=== PATIENT | female | born 1985 | race Caucasian/White ===

== ENCOUNTER 2018-10-22 07:29 | Outpatient (CLI) | payer SELFPAY ==
[2018-10-22 08:31] LABS: HCG Quant, Pregnancy 2 mIU/mL (1-3)
== END 2018-10-22 07:49 ==
PROVIDERS: PCP Obstetrics & Gynecology Reproductive Endocrinology; Visit Provider Obstetrics & Gynecology Reproductive Endocrinology
DX: O09.811 Supervision of pregnancy resulting from assisted reproductive technology, first trimester (principal)
CPT/HCPCS: 36415; 84702

== ENCOUNTER 2018-10-29 07:15 | Outpatient (CLI) | payer SELFPAY ==
[2018-10-29 08:08] LABS: HCG Quant, Pregnancy < 1 mIU/mL (1-3)
== END 2018-10-29 07:35 ==
PROVIDERS: PCP Obstetrics & Gynecology Reproductive Endocrinology; Visit Provider Obstetrics & Gynecology Reproductive Endocrinology
DX: O09.811 Supervision of pregnancy resulting from assisted reproductive technology, first trimester (principal)
CPT/HCPCS: 36415; 84702

== ENCOUNTER 2019-01-19 07:42 | Outpatient (CLI) | payer SELFPAY ==
[2019-01-19 08:32] LABS: HCG Quant, Pregnancy 212 mIU/mL (1-3)
[2019-01-19 16:23] LABS: Progesterone 33.5 ng/ml
== END 2019-01-19 08:02 ==
PROVIDERS: PCP Obstetrics & Gynecology Reproductive Endocrinology; Visit Provider Obstetrics & Gynecology Reproductive Endocrinology
DX: Z52.819 Egg (Oocyte) donor, unspecified (principal)
CPT/HCPCS: 36415; 84144; 84702

== ENCOUNTER 2019-01-26 07:33 | Outpatient (CLI) | payer SELFPAY ==
[2019-01-26 08:56] LABS: HCG Quant, Pregnancy 4160 mIU/mL (1-3)
[2019-01-26 17:08] LABS: Estradiol 298 pg/ml
[2019-01-26 17:27] LABS: Progesterone 49.7 ng/ml
== END 2019-01-26 07:53 ==
PROVIDERS: Visit Provider Obstetrics & Gynecology Reproductive Endocrinology
DX: Z52.819 Egg (Oocyte) donor, unspecified (principal); O09.811 Supervision of pregnancy resulting from assisted reproductive technology, first trimester
CPT/HCPCS: 36415; 82670; 84144; 84702

== ENCOUNTER 2019-02-02 07:21 | Outpatient (CLI) | payer SELFPAY ==
[2019-02-02 17:11] LABS: Estradiol 209 pg/ml; Progesterone 30.4 ng/ml
== END 2019-02-02 07:41 ==
PROVIDERS: Visit Provider Obstetrics & Gynecology Reproductive Endocrinology
DX: O09.811 Supervision of pregnancy resulting from assisted reproductive technology, first trimester (principal)
CPT/HCPCS: 36415; 82670; 84144; 84702

== ENCOUNTER 2019-02-09 07:10 | Outpatient (CLI) | payer SELFPAY ==
[2019-02-09 16:59] LABS: Estradiol 305 pg/ml; Progesterone 36.9 ng/ml
== END 2019-02-09 07:30 ==
PROVIDERS: Visit Provider Obstetrics & Gynecology Reproductive Endocrinology
DX: O09.811 Supervision of pregnancy resulting from assisted reproductive technology, first trimester (principal)
CPT/HCPCS: 36415; 82670; 84144

== ENCOUNTER 2019-06-01 15:54 | Outpatient (CLI) | payer BC, SELFPAY ==
[2019-06-03 10:05] LABS: Thyroglobulin Antibody <15 U/mL (<61); Thyroperoxidase Antibody <28 U/mL (<61)
[2019-06-03 11:52] LABS: IgA 172 mg/dL (85-499); Interpretation SEE COMMENTS; Tissue Transglutaminase IgA <1.2 U/mL (<4.0)
[2019-06-03 20:50] LABS: Beta 2 GP1 Ab IgG <9.4 U/mL; Beta 2 GP1 Ab IgM <9.4 U/mL
[2019-06-04 17:04] LABS: Dilute Russell Viper Venom 31.9 secs (27.2-36.9); LA Cascade Summary SEE COMMENTS; Silica Clotting Time 38.8 sec (30.2-48.4)
== END 2019-06-01 16:14 ==
PROVIDERS: Visit Provider Obstetrics & Gynecology Reproductive Endocrinology
DX: O09.812 Supervision of pregnancy resulting from assisted reproductive technology, second trimester (principal)
CPT/HCPCS: 36415; 82784; 83516; 86146; 86147; 87116; 86376; 86800

== ENCOUNTER 2019-09-18 01:01 | Outpatient (CLI) | payer BC, SELFPAY ==
--- NOTE | 2019-09-18 09:00 | DI.US_ITS ---
EXAM: US PELVIS TRANSVAGINAL CLINICAL HISTORY: US FOR ENDOMETRIAL THICKNESS TECHNIQUE: Ultrasound performed using standard protocol. COMPARISON: No exams were available for comparison FINDINGS: Pelvic ultrasound was performed transabdominally and transvaginally. Please see the accompanying sulma a sheet for measurements of the pelvic structures. Myometrium is mildly heterogeneous which may repr esent diffuse uterine fibroid. There is a tiny quantity of fluid in the endometrial cavity. Endomet rial stripe is about 8 millimeters in thickness and appears fairly homogeneous. The ovaries have a normal follicular appearance. Small quantity of cul-de-sac fluid noted. Limited scanning of the kidneys is unremarkable. IMPRESSION: Small quantity of fluid in endometrial cavity. Otherwise unremarkable appearance of the endometrium.
== END 2019-09-18 01:21 ==
PROVIDERS: Visit Provider Obstetrics & Gynecology Reproductive Endocrinology
DX: N85.8 Other specified noninflammatory disorders of uterus (principal)
CPT/HCPCS: 76830; 76856

== ENCOUNTER 2019-12-17 07:15 | Outpatient (CLI) | payer BC, SELFPAY ==
[2019-12-17 07:53] LABS: HCG Quant, Pregnancy 255 mIU/mL (1-3)
== END 2019-12-17 07:35 ==
PROVIDERS: Visit Provider Obstetrics & Gynecology Reproductive Endocrinology
DX: Z52.819 Egg (Oocyte) donor, unspecified (principal)
CPT/HCPCS: 36415; 84702

== ENCOUNTER 2019-12-22 07:06 | Outpatient (CLI) | payer BC, SELFPAY ==
[2019-12-22 08:17] LABS: HCG Quant, Pregnancy 1422 mIU/mL (1-3)
[2019-12-22 18:11] LABS: Estradiol 280 pg/mL (See Note); Progesterone 39.1 ng/mL (See Table)
== END 2019-12-22 07:26 ==
PROVIDERS: Visit Provider Obstetrics & Gynecology Reproductive Endocrinology
DX: Z52.819 Egg (Oocyte) donor, unspecified (principal)
CPT/HCPCS: 36415; 82670; 84144; 84702

== ENCOUNTER 2019-12-29 07:03 | Outpatient (CLI) | payer BC, SELFPAY ==
[2019-12-29 08:20] LABS: HCG Quant, Pregnancy 7487 mIU/mL (1-3)
[2019-12-30 17:25] LABS: Estradiol 251 pg/mL (See Note); Progesterone 32.9 ng/mL (See Table)
== END 2019-12-29 07:23 ==
PROVIDERS: Visit Provider Obstetrics & Gynecology Reproductive Endocrinology
DX: Z52.819 Egg (Oocyte) donor, unspecified (principal)
CPT/HCPCS: 36415; 82670; 84144; 84702

== ENCOUNTER 2020-01-05 07:06 | Outpatient (CLI) | payer BC, SELFPAY ==
[2020-01-05 17:40] LABS: Estradiol 206 pg/mL (See Note); Progesterone 41.6 ng/mL (See Table)
== END 2020-01-05 07:26 ==
PROVIDERS: Visit Provider Obstetrics & Gynecology Reproductive Endocrinology
DX: Z52.819 Egg (Oocyte) donor, unspecified (principal)
CPT/HCPCS: 36415; 82670; 84144

== ENCOUNTER 2020-01-28 07:05 | Outpatient (CLI) | payer BC, SELFPAY ==
[2020-01-28 17:22] LABS: Estradiol 782 pg/mL (See Note); Progesterone 34.8 ng/mL (See Table)
== END 2020-01-28 07:25 ==
PROVIDERS: Visit Provider Obstetrics & Gynecology Reproductive Endocrinology
DX: Z52.819 Egg (Oocyte) donor, unspecified (principal)
CPT/HCPCS: 36415; 82670; 84144; 84702

== ENCOUNTER 2025-07-09 07:45 | Outpatient (CLI) | payer MEDICAID, SELFPAY ==
[2025-07-09 08:34] LABS: ALT 31 U/L (14-59); AST 24 U/L (15-37); Albumin 3.8 g/dL (3.4-5.0); Alkaline Phosphatase 98 U/L (46-116); Anion Gap 7.7 mmol/L (3-11); BUN 10 mg/dL (7-18); Bilirubin, Total 0.4 mg/dL (0.2-1.0); CO2 30.3 mmol/L (21.0-32.0); Calcium 8.9 mg/dL (8.5-10.1); Calculated LDL 115 mg/dL (<100); Chloride 104 mmol/L (98-107); Cholesterol 180 mg/dL (<200); Estimated GFR 117.75 (mL/min/1.73m2); Glucose 101 mg/dL (74-106); HDL Cholesterol 49 mg/dL (>or=50); Potassium 4.3 mmol/L (3.5-5.1); Sodium 142 mmol/L (136-145); TSH (W/Ref FT4) 1.30 uIU/mL (0.36-3.74); Total Protein 7.3 g/dL (6.4-8.2); Triglyceride 82 mg/dL (<150)
[2025-07-09 19:44] LABS: HIV-1/2 Ag & Ab Screen Negative (Negative); Hepatitis C Ab w Rflx HCV PCR Negative (Negative)
== END 2025-07-09 07:46 | disposition home or self-care (01) ==
LOC: LBO 07:45
PROVIDERS: PCP Nurse Practitioner Adult Health; Visit Provider Nurse Practitioner Adult Health
DX: Z13.220 Encounter for screening for lipoid disorders (principal); Z13.1 Encounter for screening for diabetes mellitus; Z83.3 Family history of diabetes mellitus; R09.A2 Foreign body sensation, throat
CPT/HCPCS: 36415; 80053; 80061; 86803; 87389; 84443

== ENCOUNTER 2025-09-15 09:32 | Outpatient (CLI) | payer MEDICAID, SELFPAY ==
[2025-09-15 18:11] LABS: LH 4.0 mIU/mL (See Note)
[2025-09-15 18:14] LABS: FSH 3.2 mIU/mL (See Note)
[2025-09-19 15:00] LABS: Estradiol, Mass Spectrometry 191 pg/mL
== END 2025-09-15 09:33 | disposition home or self-care (01) ==
PROVIDERS: PCP Nurse Practitioner Adult Health; Visit Provider Family Medicine
DX: L65.9 Nonscarring hair loss, unspecified (principal)
CPT/HCPCS: 36415; 82670; 82679; 83001; 83002